=== PATIENT | female | born 1955 | race Caucasian/White ===

== ENCOUNTER 2021-05-18 15:46 | Outpatient (REF) | payer SELFPAY ==
--- NOTE | 2021-05-18 15:00 | PAPFT_PTH ---
PATIENT: Jennifer Vásquez LOC: [facility]#:[id number] AGE/SX: 65/F ROOM: RE05/18/[address]: Elena Pham : 1955 BED: DIS: 05/18/2021 SPEC #: [id number] RECD: 05/19/21 12:57 STATUS: OUMOU REArlene #: [id number] PARVIZ: 05/18/21 15:[address]: Elena Pham [facility] Cytology RECD BY: Alicia Daniel Tissues: 1 - CX/ENDOCX FOR PAP SMEARS Procedures: PAP THIN PREP/UVM Screening HPV DNA PROBE Comments: [id number]
[2021-05-18 20:45] LABS: Cholesterol 311 mg/dL (<200); Glucose 95 mg/dL (74-106); HDL Cholesterol 54 mg/dL (40-60); Triglyceride 511 mg/dL (<150)
[2021-05-18 20:57] LABS: LDL CHOLESTEROL 175 mg/dL (<100)
== END 2021-05-18 15:47 | disposition home or self-care (01) ==
LOC: NCHCN 15:46
PROVIDERS: Visit Provider Nurse Practitioner Family
DX: Z00.00 Encounter for general adult medical examination without abnormal findings (principal); Z13.220 Encounter for screening for lipoid disorders; Z13.1 Encounter for screening for diabetes mellitus; Z12.4 Encounter for screening for malignant neoplasm of cervix; Z11.51 Encounter for screening for human papillomavirus (HPV)
CPT/HCPCS: 80053; 80061; 82947; 83721; 88142; 83036; 85025; 87624

== ENCOUNTER 2021-11-03 14:52 | Outpatient (REF) | payer MEDICARE, SELFPAY ==
[2021-11-03 18:09] LABS: Calculated LDL 183 mg/dL (<100); Cholesterol 286 mg/dL (<200); HDL Cholesterol 67 mg/dL (40-60); Triglyceride 183 mg/dL (<150)
== END 2021-11-03 14:53 | disposition home or self-care (01) ==
LOC: NCHCN 14:52
PROVIDERS: Visit Provider Nurse Practitioner Family
DX: E78.1 Pure hyperglyceridemia (principal)
CPT/HCPCS: 80061

== ENCOUNTER 2022-07-04 01:23 | Outpatient (CLI) | payer MEDICARE, SELFPAY ==
--- NOTE | 2022-07-04 11:15 | DI.US_ITS ---
Exam(s) US PELVIS TRANSVAGINAL EXAM: US PELVIS TRANSVAGINAL CLINICAL HISTORY: POSTMENOPAUSAL VAGINAL BLEEDING, N95.0, INTERMITTENT. TECHNIQUE: Transabdominal and transvaginal pelvic ultrasound was performed using standard protocol. COMPARISON: No exams were available for comparison FINDINGS: KIDNEYS: Limited renal evaluation is unremarkable. UTERUS: Position: Anteverted. Size: 5.5 long by 3.8 AP by 4.3 transverse cm Endometrium: Up to 2.8 cm. There is a hyperechoic solid focal thickening in the fundus of the endomet rial canal. Based on the images it appears to be a mass. It measures 2.8 x 1.7 x 2.5 cm. No blood flow is identified internally. Myometrium: Unremarkable. Cervix: Unremarkable. OVARIES: The ovaries were not visualized transabdominally or transvaginally. No adnexal masses are p resent. CUL-DE-SAC: Free fluid: None. Other: None. IMPRESSION: 1. Limited evaluation of the kidneys is unremarkable. 2. Focal thickening in the fundal endometrium measuring 2.8 x 1.7 x 2.7 cm. The findings are suspici ous for endometrial mass, such as a neoplasm or polyp. Endometrial evaluation/biopsy is recommended. Gynecologic consult is recommended. 3. The ovaries were not visualized transabdominally or transvaginally. No adnexal masses are seen so nographically. DATA REPOSITORY:
== END 2022-07-04 01:43 ==
PROVIDERS: Visit Provider Nurse Practitioner Family
DX: N95.0 Postmenopausal bleeding (principal)
CPT/HCPCS: 76830; 76856

== ENCOUNTER 2022-08-15 03:20 | Outpatient (CLI) | payer MEDICARE, SELFPAY ==
[2022-08-15 11:18] LABS: Abs Immature Grans 0.03 10^3/uL (0.0-0.06); Absolute Basophil Count 0.05 10^3/uL (0.0-0.2); Absolute Lymphocyte Count 1.67 10^3/uL (1.2-3.4); Absolute Monocyte Count 0.52 10^3/uL (0.1-0.8); Absolute Neutrophil Count 4.52 10^3/uL (1.2-6.7); Basophils % 0.7; Eosinophils % 1.5; HCT 39.9 % (36.0-46.0); HGB 12.9 g/dL (11.2-15.7); Immature Grans % 0.4; Lymphocytes % 24.2; MCH 28.4 pg (27.0-33.0); MCHC 32.3 % (32.0-36.0); MCV 88 fL (80-95); Monocytes % 7.5; Neutrophils % 65.7; Platelet Count 321 10^3/uL (130-400); RBC 4.55 10^6/uL (3.93-5.22); RDW 13.3 % (11.7-14.6); WBC 6.89 10^3/uL (4.4-10.8)
== END 2022-08-15 03:21 | disposition home or self-care (01) ==
LOC: LBO 03:20
PROVIDERS: Visit Provider Obstetrics & Gynecology
DX: N95.0 Postmenopausal bleeding (principal); R93.89 Abnormal findings on diagnostic imaging of other specified body structures; Z01.818 Encounter for other preprocedural examination; Z01.812 Encounter for preprocedural laboratory examination
CPT/HCPCS: 36415; 86850; 86900; 86901; 85025

== ENCOUNTER 2022-08-17 06:15 | Day surgery (SDC) | payer MEDICARE, SELFPAY ==
[2022-08-17] VITALS (7 sets, daily range): BP systolic 85–115; BP diastolic 46–76; PULSE 65–78; RESP 12–18; TEMP 36.2–36.4; O2SAT 96–100; BMI 26.6
--- NOTE | 2022-08-17 07:01 | W.ANESPRE ---
General Info Date of Service Date Performed: 08/17/22 Height: 5 ft 7 in Weight: 77 kg Body Mass Index (BMI): 26.6 Surgical Procedure: Operation Date: 08/17/22 07:40 Proposed Procedure Side Surgeon p Dilation & Curettage with Hysteroscopy, Possible Myosure Jackie Polk DO Meds Allergies and Home Medications Allergies Allergy/AdvReac Type Severity Reaction Status Date / Time No Known Allergies Allergy Verified 08/17/22 06:43 Home Medication Medication Instructions Recorded multivitamin 1 tab PO DAILY 08/17/22 Current Visit Medications: Current Medications Generic Name Dose Route Start Last Admin Trade Name Freq PRN Reason Stop Dose Admin Ringer's Solution 1,000 mls @ 125 mls/hr 08/17/22 06:00 IV 09/15/22 23:59 INFUSION JEROMY IV Miscellaneous Supplies 1 each 08/17/22 06:00 Iv Access IV 09/15/22 23:59 DIRECTED JEROMY Sodium Chloride 0 ml 08/17/22 06:00 Normal Saline Flush 10 Ml Syr IV 09/15/22 23:59 PRN PRN Sodium Chloride 0 ml 08/17/22 06:00 Normal Saline 10 Ml Vial IJ 09/15/22 23:59 DIRECTED PRN Sterile Water 0 ml 08/17/22 06:00 Water,Injection,Sterile 10 Ml Vial IJ 09/15/22 23:59 DIRECTED PRN PFSH Active Problems Active Problems: Problem Status Onset Code Postmenopausal bleeding N95.0 Thickened endometrium R93.89 Medical History Medical History Comments:: pt states last surgery had hard time coming out of anesthesia and was admitted for delayed emergence and PONV Surgical History Surgical History H/O bilateral breast implants H/O cone biopsy of cervix H/O lumpectomy Tobacco Smoking/Tobacco Use Status: Never Alcohol Alcohol Intake: current Alcohol intake frequency: holidays/special occasions only Substance Use Substance use: Never Prental History History 4 Para 4 Hx # Term Pregnancies 4 Multiple births Hx # Pregnancies Ectopic pregnancies AB induced Hx Number of Living Children 4 AB spontaneous Vital Signs and Lab Results Vital Signs Most Recent Vital Signs in EMR: Most Recent Vital Signs Temp Pulse Resp BP Pulse Ox 36.4 C L 72 18 112/76 99 08/17/22 06:28 08/17/22 06:28 08/17/22 06:28 08/17/22 06:28 08/17/22 06:28 Lab Results Blood Type / Crossmatch: Patient ABO/Rh B Positive 08/15/22 Antibody Screen NEGATIVE 08/15/22 Complete Blood Count: White Blood Count 6.89 10^3/uL (4.4-10.8) 08/15/22 11:05 Red Blood Count 4.55 10^6/uL (3.93-5.22) 08/15/22 11:05 Hemoglobin 12.9 g/dL (11.2-15.7) 08/15/22 11:05 Hematocrit 39.9 % (36.0-46.0) 08/15/22 11:05 Platelet Count 321 10^3/uL (130-400) 08/15/22 11:05 Complete Metabolic Panel: No Data to Display Liver Function Panel: No Data to Display Coagulation Panel: No Data to Display Cardiac Panel: No Data to Display Arterial Blood Gas: No Data to Display Venous Blood Gas: No Data to Display Pancreas Panel: No Data to Display Thyroid Panel: No Data to Display Infectious Disease: No Data to Display Blood Cultures: No Data to Display Toxicology Panel: No Data to Display Anesthesia Assessment and Plan Anesthesia History Personal History: PONV and Delayed Emergence Family History: No Family History of Anesthesia Complications Exercise Tolerance Exercise Tolerance: Metabolic Equivalents>4 Pertinent Negatives Pertinent Negatives: No Symptoms of GERD, No Major Cardiovascular Symptoms or Complaints and No Major Pulmonary Symptoms or Complaints Cardiac & Pulmonary Exam Cardiac Exam: Normal S1/S2 Heart Sounds Pulmonary Exam: Clear Bilateral Breath Sounds Implantable Cardiac Device Does patient have a Pacemaker or an ICD?: No Airway Exam Known Difficult Airway: No Mallampati Class: 2 Mouth Opening: Normal (> 3cm) Thyromental Distance: Greater than 3 cm Neck Range of Motion: Full ROM Neck Circumference: Normal Teeth Condition: Normal Dentition ASA Classification ASA Score: ASA 2 Emergency Case?: No NPO Status NPO Status: NPO Clears >2 hours, Solids >8 hours Anesthesia Plan Resuscitation Status: Full Code Anesthesia Technique: General Anesthesia Airway Planned: Natural Airway Monitors Used: Standard Monitors and SedLine
[2022-08-17] MEDS: Lactated Ringers 1,000 ML 125 ML IV (07:05)
--- NOTE | 2022-08-17 07:34 | HPE_ITS ---
Date of service: 08/17/22 Time of Service: 07:34 Assessment and Plan Assessment and plan (1) Postmenopausal bleeding: Status: Acute Assessment and plan: Patient is a postmenopausal female with postmenopausal (2) Thickened endometrium: Status: Acute History of Present Illness History of Present Illness Chief Complaint: Markedly thickened endometrial lining at 2.8 cm with postmenopausal bleedin Narrative: Patient is a 66-year-old female with postmenopausal bleeding and a markedly thickened endometrium at 2.8 cm. In light of this thickness, my recommendation would be for hysteroscopy with dilation and curettage, possible MyoSure for removal of polyp and pathologic specimen to the lab for diagnosis. All of her questions were answered today. Review of Systems Narrative: Feeling well. No issues or concerns Eyes Eyes: Reports system reviewed and no additional complaints, except as documented ENT Ears, Nose, Mouth, and Throat: Reports system reviewed and no additional complaints, except as documented Cardiovascular Cardiovascular: Reports system reviewed and no additional complaints, except as documented Respiratory Respiratory: Reports system reviewed and no additional complaints, except as documented Gastrointestinal Gastrointestinal: Reports system reviewed and no additional complaints, except as documented Genitourinary Genitourinary: Reports system reviewed and no additional complaints, except as documented and Reports as per HPI Musculoskeletal Musculoskeletal: Reports system reviewed and no additional complaints, except as documented Integumentary/Breasts Skin/Breast: Reports system reviewed and no additional complaints, except as documented PFSH All Active Problems Postmenopausal bleeding (Acute) Thickened endometrium (Acute) Surgical History H/O bilateral breast implants H/O cone biopsy of cervix H/O lumpectomy Family History Mother Breast cancer Social History Smoking/Tobacco Use Status: Never Smoking risk assessment performed?: Yes Alcohol Intake: current Alcohol Intake frequency: holidays/special occasions only Drug use: Never Do you feel safe at home: Yes Do you feel safe in your relationship?: Yes Female Reproductive History Menstrual Age of Menarche: 13 Menopause type: natural History History 4 Para 4 Hx # Term Pregnancies 4 Multiple births Hx # Pregnancies Ectopic pregnancies AB induced Hx Number of Living Children 4 AB spontaneous Meds Allergies and Home Medications Allergies Allergy/AdvReac Type Severity Reaction Status Date / Time No Known Allergies Allergy Verified 08/17/22 06:43 Home Medications Medication Instructions Recorded Confirmed Type multivitamin 1 tab PO DAILY 08/17/22 08/17/22 History Exam Const General: cooperative, healthy appearing, comfortable and no acute distress Nutritional Appearance: average body habitus HENPR Head: normal to inspection Eyes General: appearance normal, both eyes and all related structures Neck Neck: normal visual inspection, full ROM and supple Resp Effort & Inspection: normal respiratory effort, no audible wheezes and no cough Auscultation: clear to auscultation bilaterally, no rales, no rhonchi and no wheezes Cardio Palpation: normal PMI Rate: regular rate Rhythm: regular rhythm Heart Sounds: S1 normal, S2 normal and no murmurs Psych Appearance: grossly normal Mental Status: mental status grossly normal Results Imaging Additional studies: Markedly thickened endometrium at 2.8 cm Last Vital Signs Temp 97.5 F L 08/17/22 06:28 Pulse 72 08/17/22 06:28 Resp 18 08/17/22 06:28 BP 112/76 08/17/22 06:28 Pulse Ox 99 08/17/22 06:28 Time Spent Time spent with Patient: <40 minutes Time was spent: preparing to see the patient(eg.review tests), obtaining and/or reviewing separately otained hiistory, ordering medications,tests, procedures, referring, communicating with other health home health care case manager, indepentently interpreting results and counseling the patient
--- NOTE | 2022-08-17 08:15 | ENDO_PTH ---
PATIENT: Jennifer Vásquez LOC: [facility] U#:[id number] AGE/SX: 66/F ROOM: RE08/17/[address]: Jackie Polk DO : 1955 BED: DIS: 08/17/2022 SPEC #: [id number] RECD: 08/17/22 11:01 STATUS: OUMOU REQ #: [id number] PARVIZ: 08/17/22 08:[address]: Jackie Polk DEPT: Surgical Specimen RECD BY: Alicia Daniel ENTERED: 08/17/22 11:03 SP TYPE: Endo OTHR DR: Unknown,Unknown Tissues: 1 - ENDOCERVICAL BX/CURRETTE 2 - ENDOMETRIUM BX/CURRETTE Procedures: GROSS AND MICRO LEVEL 4 Comments: [id number]
--- NOTE | 2022-08-17 08:36 | ROE_ITS ---
Date of service: 08/17/22 Time of Service: 08:36 Operative Note Operative Note DATE OF PROCEDURE: 08/17/22 PRE-OP DIAGNOSIS: Postmenopausal bleeding, thickened endometrium POST-OP DIAGNOSIS: same PROCEDURE: Hysteroscopy with dilation and curettage SURGEON: Jackie Polk ANESTHESIA TYPE: General LMA/ETT Refer to Anesthesia Record ESTIMATED BLOOD LOSS: 5 PATHOLOGY: other (1. Endocervical curetting 2. Endometrial curetting) COMPLICATIONS: None Patient was transported to: PACU Patient's condition: stable Implants: None Indications: Postmenopausal bleeding and thickened endometrium Findings: [place] posterior wall of the endometrial cavity. Anterior portion of the cavity smooth and regular. Tubal ostia visualized. No polyp or fibroid noted. Procedure Description: After full informed consent was obtained, patient was taken the operating suite with an IV running. She was placed in the supine position and anesthesia administered via LMA. She was then placed in the modified dorsolithotomy pos ition and prepped and draped in the usual sterile fashion. Her bladder was drained for approximately 100 cc of clear yellow urine. Exam under anesthesia revealed a uterus that was midline and mobile and not significantly enlarged. There is no evidence of pelvic mass. At this point speculum was inserted into the vaginal vault and the cervical os identified. A single-tooth tenaculum was used to grasp the anterior lip of the cervix. Cervical os was dilated in a sequential fashion to the point that a 6 mm hysteroscope could be passed without difficulty. With fluid management system and instillation of normal saline the endometrial cavity was visualized. There was no evidence of polyp, or fibroid. The posterior aspect of the endometrial cavity looked plush and somewhat irregular. At this point the hysteroscopic portion of the examination was discontinued with a fluid deficit of 50 mL of normal saline. Curettage of the lower portion of the cervix was performed for scant tissue and a subsequent curettage of the endometrial cavity performed for moderate tissue. These were sent separately for pathologic examination. Single-tooth tenaculum was then removed and puncture site was noted to be hemostatic. Speculum was removed and the patient was returned to the dorsal supine position. She was taken to the postanesthesia care unit in stable condition. Complications: None apparent EBL: 5 mL Pathology: 1. Endocervical curetting 2. Endometrial curetting Fluid: Crystalloid per anesthesia.
--- NOTE | 2022-08-17 09:38 | W.ANESPOSTOP ---
Postoperative Evaluation Date, Time and Location Date Performed: 08/17/22 Time Performed: 09:14 Patient Location: Day Surgery Unit Vital Signs Most Recent Imported Vital Signs: Most Recent Vital Signs Temp Pulse Resp BP Pulse Ox 36.2 C L 65 16 115/71 99 08/17/22 09:30 08/17/22 09:30 08/17/22 09:30 08/17/22 09:30 08/17/22 09:30 Pain Score Most Recent Pain Score: Most Recent Pain Score Pain Level 0 08/17/22 09:30 Assessment Mental Status: Awake (Alert & Oriented to Patient Baseline) Airway and Respiratory Function: Patent airway with normal (patient baseline) respiratory exam Cardiovascular Function: Hemodynamically Stable Hydration Status: Adequately Hydrated Nausea & Vomiting: No Nausea or Vomiting Pain: Pt. Denies Any Pain Peripheral Nerve Block: Patient did not receive a nerve block
== END 2022-08-17 10:42 | disposition home or self-care (01) ==
PROVIDERS: Visit Provider Obstetrics & Gynecology
PROC: 0UDB8ZZ Extraction of Endometrium, Via Natural or Artificial Opening Endoscopic (ICD-10-PCS; CPT 58558; principal; 2022-08-17 07:30)
DX: N95.0 Postmenopausal bleeding (principal); R93.89 Abnormal findings on diagnostic imaging of other specified body structures; C54.1 Malignant neoplasm of endometrium
CPT/HCPCS: 58558; 88305; J1100; J1885; J2405; J2704

== ENCOUNTER 2023-08-06 14:58 | Outpatient (REF) | payer MEDICARE, SELFPAY ==
[2023-08-06 14:57] LABS: Hemoglobin A1C 5.7 % (<5.7)
[2023-08-06 15:04] LABS: ALT 27 U/L (14-59); AST 14 U/L (15-37); Albumin 3.8 g/dL (3.4-5.0); Alkaline Phosphatase 66 U/L (46-116); Anion Gap 8.9 mmol/L (3-11); BUN 18 mg/dL (7-18); Bilirubin, Total 0.2 mg/dL (0.2-1.0); CO2 26.1 mmol/L (21.0-32.0); CREATININE 0.8 mg/dL (0.55-1.02); Calcium 9.3 mg/dL (8.5-10.1); Chloride 103 mmol/L (98-107); Estimated GFR 81.21 (mL/min/1.73m2); Glucose 117 mg/dL (74-106); Lipase 29 U/L (16-77); Sodium 138 mmol/L (136-145); Total Protein 7.5 g/dL (6.4-8.2)
== END 2023-08-06 14:59 | disposition home or self-care (01) ==
LOC: NCHCN 14:58
PROVIDERS: Visit Provider Nurse Practitioner Family
DX: R73.03 Prediabetes (principal); R94.5 Abnormal results of liver function studies; K59.00 Constipation, unspecified
CPT/HCPCS: 80053; 83690; 83036

== ENCOUNTER → 2023-08-13 03:06 | Outpatient (CLI) | payer MEDICARE, SELFPAY ==
--- NOTE | 2023-08-13 11:10 | DI.RAD_ITS ---
Exam(s) XR CHEST 2V PA LATERAL EXAM: XR CHEST 2V PA LATERAL CLINICAL HISTORY: CHEST PAIN R07.89 TIGHT CHEST TECHNIQUE: 2D digital imaging was performed. COMPARISON: No exams were available for comparison FINDINGS: HEART: Normal size. Aorta: Not dilated. PULMONARY VASCULATURE: Normal. LUNGS: Clear. PLEURAL SPACE: No pleural effusion or pneumothorax. BONE:Unremarkable for age. Soft tissues: Unremarkable. IMPRESSION: No acute abnormality. DATA REPOSITORY: RADIATION DOSE DELIVERED:
== END ==
PROVIDERS: Visit Provider Nurse Practitioner Family
DX: R07.89 Other chest pain (principal)
CPT/HCPCS: 71046

== ENCOUNTER 2024-03-31 18:42 | Outpatient (REF) | payer MEDICARE, SELFPAY ==
--- OUTSIDE RECORDS SUMMARY | 2024-03-31 18:43 | XMS_ITS | Referral Summary ---
Author Organization [facility] Address [address] [place] [address] Care Team Providers Care Push Button Switch Assembler Name Role Phone Unknown, Provider Primary Care Provider [phone] Social History Tobacco Use Types Packs/Day Years Used Date Smoking Tobacco: Never Assessed Sex and Gender Information Value Date Recorded Sex Assigned at Not on file Gender Identity Not on file Sexual Orientation Not on file Plan of Treatment Not on file Care Teams Push Button Switch Assembler Relationship Specialty Start Date End Date Unknown, Provider, PCP - General 07/23/22
--- OUTSIDE RECORDS SUMMARY | 2024-03-31 18:43 | XMS_ITS | Clinical Summary ---
Author Organization [facility] Address [address] [place] [address] Care Team Providers Care Electric Crane Operator Name Role Phone Unknown, Provider Primary Care Provider [phone] Social History Tobacco Use Types Packs/Day Years Used Date Smoking Tobacco: Never Assessed Sex and Gender Information Value Date Recorded Sex Assigned at Not on file Gender Identity Not on file Sexual Orientation Not on file Plan of Treatment Health Maintenance Due Date Last Done Comments Hepatitis C Screen 1955 RSV Immunization ( o r 60+ Years) (1 - 1-dose 60+ series) 2016 Fall Risk Screening 2021 COVID-19 Vaccine ( season) 2023 Care Teams Electric Crane Operator Relationship Specialty Start Date End Date Unknown, Provider, PCP - General 07/23/22
--- OUTSIDE RECORDS SUMMARY | 2024-03-31 18:44 | XMS_ITS | Encounter Summary ---
Author Organization [facility] Address [address] [place] [address] Care Team Providers Care Interactive Media Marketing Director Name Role Phone Unknown, Provider Primary Care Provider [phone] Encounter Details Date Type Department Care Team (Late st Contact Info) Description 05/20/2021 Lab Requisition [facility] Pathology & Laboratory Medicine - [facility] [address] [place] [address] Elena Pham, [address] [id number] Encounter for screening for malignant neoplasm of cervix Social History Tobacco Use Types Packs/Day Years Used Date Smoking Tobacco: Never Assessed Sex and Gender Information Value Date Recorded Sex Assigned at Not on file Gender Identity Not on file Sexual Orientation Not on file documented as of this encounter Plan of Treatment Not on file documented as of this encounter Procedures Procedure Name Priority Date/Time Associated Diagnosis Comments PAP TEST Today 05/18/2021 15:00 EDT Encounter for screening for malignant neoplasm of cervix HPV DNA DETECTION WITH GENOTYPING, PCR Today 05/18/2021 15:00 EDT Encounter for screening for malignant neoplasm of cervix documented in this encounter Results * HUMAN PAPILLOMAVIRUS (HPV) DETECTION-HIGH RISK TYPES (05/18/2021 15:00 EDT) HPV other High Risk types, PCR Negative Negative 05/27/2021 8:30 EDT [facility] Comment:No E6 or E7 mRNA is detected from HPV types 16,18,31,33,35,39,45,51,52,56,58,59,66, and 68 by studio assistant mediated amplification. Papanicolaou smear specimen (specimen) CERVIX UTERI STRUCTURE / Unknown 05/18/2021 15:00 EDT 05/25/2021 13:29 EDT Elena Pham SERVER CASHIER MICROBIOLOGY - GENER AL ORDERABLES [facility] [address] [place] [id number] * PAP TEST (05/18/2021 15:00 EDT) Specimens A. Cervix and/or Endocervix , ThinPrep Imaging System with Manual Evaluation 05/27/2021 8:30 T [facility] Specimen Adequacy Satisfactory for Evaluation - assessment of transformation zone component not applicable ( e.g. atrophy, vaginal sample, hysterectomy) 05/27/2021 8:30 EDT [facility] General Categorization Negative for intraepithelial lesion or malignancy 05/27/2021 8:30 T [facility] Attestation . 05/27/2021 8:30 [facility] at 0830 Clinical History See below 05/27/20 8:30 T [facility] HPV The result for the Human Papillomavirus (HPV) Detection-High Risk Types is Negative. No E6 or E7 mRNA is detected from HPV types 16,18,31,33,35,39 ,45,51,52,56,58,5 9,66, and 68 by studio assistant mediated amplification.Lisa ting was performed on specimen [id number] and was resulted on 05/27/2021 0815 EDT by PHIL, LAB INSTRUMENT RESULTS IN 05/27/2021 8:30 EDT [facility] Performing Lab [facility] 05/27/2021 8:30 EDT [facility] Scanned Images 05/27/2021 8:30 T [facility] Papanicolaou smear specimen (specimen) CERVIX UTERI STRUCTURE / Unknown 05/18/2021 15:00 EDT 05/20/2021 12:26 EDT Elena Beckett Albertkaity SERVER CASHIER PATHOLOGY ORDERABLES [facility] [address] [place] [address] documented in this encounter Visit Diagnoses Diagnosis Encounter for screening for malignant neoplasm of cervix Screening for malignant neoplasm of the cervix documented in this encounter Care Teams Interactive Media Marketing Director Relationship Specialty Start Date End Date Unknown, Provider, PCP - General 07/23/22 documented as of this encounter
--- OUTSIDE RECORDS SUMMARY | 2024-03-31 18:44 | XMS_ITS | Encounter Summary ---
Author Organization [facility] Address [address] [place] [address] Care Team Providers Care Speech Language Pathology Assistant Name Role Phone Unknown, Provider Primary Care Provider [phone] Encounter Details Date Type Department Care Team (Late st Contact Info) Description 08/17/2022 Lab Requisition [facility] Pathology & Laboratory Medicine - [facility] [address] [place] [address] Jackie Polk [address] [place] [address] [place] [address] Postmenopausal bleeding; Abnormal findings on diagnostic imaging of other specified body structures; Other specified postprocedural states Social History Tobacco Use Types Packs/Day Years Used Date Smoking Tobacco: Never Assessed Sex and Gender Information Value Date Recorded Sex Assigned at Not on file Gender Identity Not on file Sexual Orientation Not on file documented as of this encounter Plan of Treatment Not on file documented as of this encounter Procedures Procedure Name Priority Date/Time Associated Diagnosis Comments SURGICAL PATHOLOGY Today 08/17/2022 8: 15 EST Postmenopausal bleeding Abnormal findings on diagnostic imaging of other specified body structures Other specified postprocedural states documented in this encounter Results * SURGICAL PATHOLOGY (08/17/2022 8:15 EST) Note to Patient The following pathology results have been interpreted by your pathologist and may be available to you before your health provider has had the opportunity to review them. Please allow time for your provider to receive these results and explore management options, if applicable. 08/23/2022 9:41 EST [facility] Final Diagnosis A. ENDOCERVIX, CURETTAGE: - Minute detached fragment of endometrial adenocarcinoma. - Scant fragments of squamous and lower uterine segment/endocervical tissue. B. ENDOMETRIUM, CURETTAGE: - Endometrial adenocarcinoma, endometrioid type, FIGO grade 1. See comment. 08/23/2022 9:41 [facility] Diagnosis Comment Cable Puller slides of this case were reviewed at the intradepartmental consultation conference. Immunohistochemical staining for mismatch repair (MMR) proteins for Shubuta Martines Screening has been performed on block B1. The results are listed under Ancillary Studies. ANTIBODY (CLONE) (BLOCK): RESULT P16 (E6H4TM, [place]) (B2): Mosaic expression CEA Monoclonal (CEA31, [place]) (B2): Negative in cells of interest Vimentin (V9, [place]) (B2): Diffusely positive Progesterone Receptor (16, [place]) (B2): Diffusely positive. NOTE: One or more of the reagents used in immunoperoxidase testing in this case may not have been cleared or approved by the U.S. Food and Drug Administration (FDA). The FDA has determined that such clearance or approval is not necessary. These tests are used for clinical purposes. They should not be regarded as investigational or for research. These reagents' performance characteristics have been determined by [facility] and/or by the referring laboratory. The positive and negative controls worked appropriately. If immunoperoxidase staining has been performed on alcohol fixed cytology specimens, which has not been fully validated, the assays should be interpreted with caution and correlated with clinical data. This laboratory is certified under the Clinical Laboratory Improvement Amendments of 1988 (CLIA-88) as qualified to perform high complexity clinical laboratory testing.? 08/23/2022 9:41 [facility] Attestation There was significan t resident/fellow involvement in the diagnostic evaluation of this case. By the signature below, the attending physician certifies that they have personally conducted a gross and/or microscopic examination of the described specimens and rendered or confirmed the above diagnosis. 08/23/2022 9:41 [facility] at 0941 Ancillary Studies RESULTS OF IMMUNOHISTOCHEMICAL STAINING: Retained expression of MLH1, PMS2, MSH2 and MSH6 TISSUE SUBMITTED: Formalin fixed paraffin embedded tissue block labelled ([id number]), block (B1) TUMOR TYPE: Endometrial adenocarcinoma, endometrioid-type, FIGO grade 1. INTERPRETATION: These results are indicative of normal DNA mismatch repair function within the tumor. This patient most likely does not have Martines syndrome. However, it is important to note that 3-10% of Martines syndrome patients may reveal retained expression of mismatch repair proteins due to mutation in other genes. Hence these findings should be interpreted in the context of family and clinical history. If results do not match clinicopathologic findings, molecular testing (specifically microsatellite instability by PCR) can be ordered upon obtaining preauthorization or an advanced beneficiary notice. ANTIBODY (CLONE) (BLOCK): RESULT MLH1 (M1, [place]) (block B1): Retained expression in tumor PMS2 (A16-4, [place]) (block B1): Retained expression in tumor MSH2 ([id number], [place]) (block B1): Retained expression in tumor MSH6 (SP93, [place]) (block B1): Retained expression in tumor Internal controls: Adequate NOTE: One or more of the reagents used in immunohistochemical testing in this case may not have been cleared or approved by the U.S. Food and Drug Administration (FDA). The FDA has determined that such clearance or approval is not necessary. These tests are used for clinical purposes. They should not be regarded as investigational or for research. These reagents' performance characteristics have been determined by [facility] and/or by the referring laboratory. The positive and negative controls worked appropriately. This laboratory is certified under the Clinical Laboratory Improvement Amendments of 1988 (CLIA-88) as qualified to perform high complexity clinical laboratory testing. 08/23/2022 9:41 [facility] Clinical History Postmenopausal bleeding; thickened endometrium 08/23/2022 9:41 [facility] Gross Description A. Received in formalin labelled with proper patient identification (initials H, C) and endocervical curettings is an aggregate of arora fragments of soft tissue with the presence of minute amounts of blood clot that measures 0.4 x 0.1 x 0.1 cm . The specimen is submitted entirely in A1. B. Received in formalin labelled with proper patient identification (initials H, C) and endometrial curettings is an aggregate of yellow-arora fragments of soft tissue that measures 2.5 x 1.7 x 0.8 cm. Also received in the same container is an aggregate of blood clot that measures 1.3 x 1.0 x 0.4 cm. The ratio between tissue to blood clot is roughly 60% tissue : 40% blood clot The specimen is submitted entirely as follows: BLOCK DOMINGUEZ B1-B2- aggregate of fragments of soft tissue B3- aggregate of blood clot Miguelina Camilo 08/18/2022 5:51 08/23/2022 9:41 EST [facility] Resident/Fell ow: Sheldon Camilo MD 08/23/2022 9:41 EST [facility] Performing Lab [facility] 08/23/2022 9:41 EST [facility] Scanned Images 08/23/2022 9:41 EST [facility] Tissue ENTIRE ENDOMETRIUM / Unknown 08/17/2022 8:15 EST 08/17/2022 21:18 EST Tissue specimen (specimen) ENDOMETRIAL STRUCTURE / Unknown 08/17/2022 8:15 EST 08/17/2022 21:18 EST Jackie Polk PATHOLOGY ORDERABLES Performing Organization Address City/State/[facility] Co de Phone Number [facility] [address] [place] [address] documented in this encounter Visit Diagnoses Diagnosis Postmenopausal bleeding Abnormal findings on diagnostic imaging of other specified body structures Other specified postprocedural states documented in this encounter Care Teams Speech Language Pathology Assistant Relationship Specialty Start Date End Date Unknown, Provider, PCP - General 07/23/22 documented as of this encounter
[2024-03-31 21:45] LABS: HCT 39.5 % (36.0-46.0); HGB 12.9 g/dL (11.2-15.7); MCH 28.8 pg (27.0-33.0); MCHC 32.7 % (32.0-36.0); MCV 88 fL (80-95); MPV 9.7 fL (8.0-11.0); Platelet Count 296 10^3/uL (130-400); RBC 4.48 10^6/uL (3.93-5.22); RDW 13.4 % (11.7-14.6); RDW-SD 43.8 fL; WBC 5.46 10^3/uL (4.4-10.8)
[2024-03-31 22:02] LABS: ALT 30 U/L (14-59); AST 22 U/L (15-37); Albumin 3.8 g/dL (3.4-5.0); Alkaline Phosphatase 68 U/L (46-116); Anion Gap 6.5 mmol/L (3-11); BUN 15 mg/dL (7-18); Bilirubin, Total 0.26 mg/dL (0.2-1.0); CO2 27.5 mmol/L (21.0-32.0); CREATININE 0.8 mg/dL (0.55-1.02); Calcium 9.2 mg/dL (8.5-10.1); Calculated LDL 157 mg/dL (<100); Chloride 104 mmol/L (98-107); Cholesterol 275 mg/dL (<200); Estimated GFR 80.71 (mL/min/1.73m2); Glucose 96 mg/dL (74-106); HDL Cholesterol 71 mg/dL (40-60); Potassium 3.8 mmol/L (3.5-5.1); Sodium 138 mmol/L (136-145); Total Protein 7.1 g/dL (6.4-8.2); Triglyceride 235 mg/dL (<150)
== END 2024-03-31 18:43 | disposition home or self-care (01) ==
LOC: NCHCN 18:42
PROVIDERS: Visit Provider Nurse Practitioner Family
DX: E78.5 Hyperlipidemia, unspecified (principal); R73.03 Prediabetes; I73.9 Peripheral vascular disease, unspecified
CPT/HCPCS: 80053; 80061; 85027; 83036

== ENCOUNTER 2024-11-18 10:20 | Outpatient (CLI) | payer MEDICARE, SELFPAY ==
[2024-11-18 11:20] LABS: CREATININE 0.8 mg/dL (0.55-1.02); Estimated GFR 80.21 (mL/min/1.73m2)
== END 2024-11-18 10:21 | disposition home or self-care (01) ==
LOC: LBO 10:25
PROVIDERS: Visit Provider Radiology Radiation Oncology
DX: C54.1 Malignant neoplasm of endometrium (principal)
CPT/HCPCS: 36415; 82565

== ENCOUNTER 2025-05-04 15:00 | Outpatient (REF) | payer MEDICARE, SELFPAY ==
[2025-05-04 16:25] LABS: D-Dimer 660 ng/mlFEU (<500)
== END 2025-05-04 15:01 | disposition home or self-care (01) ==
LOC: NCHCN 15:00
PROVIDERS: Visit Provider Nurse Practitioner Family
DX: M25.561 Pain in right knee (principal)
CPT/HCPCS: 85379

== ENCOUNTER 2025-05-05 11:18 | Outpatient (CLI) | payer MEDICARE, SELFPAY ==
--- NOTE | 2025-05-05 | DI.US_ITS ---
Exam(s) US LOWER EXTREMITY VENOUS RT EXAM: US LOWER EXTREMITY VENOUS RT CLINICAL HISTORY: M79.604 Pain RT leg, HX CA presents w/RT knee pain,swelling;2 recent falls. TECHNIQUE: Lower extremity venous ultrasound performed using grayscale, color- flow, and spectral Doppler analysis. COMPARISON: No exams were available for comparison FINDINGS: The common femoral, femoral and popliteal veins demonstrate normal compressibility, augmentation, and color Doppler. The posterior tibial and peroneal veins are patent. No saphenous vein thrombosis or other superficial venous thrombosis is seen. No hematoma or Villarreal's cyst is seen. IMPRESSION: Negative lower extremity ultrasound. No evidence of DVT. DATA REPOSITORY:
== END 2025-05-05 11:38 ==
LOC: DI 11:19
PROVIDERS: Visit Provider Nurse Practitioner Family
DX: M79.604 Pain in right leg (principal)
CPT/HCPCS: 93971

== ENCOUNTER 2025-06-11 15:02 | Outpatient (CLI) | payer MEDICARE, SELFPAY ==
--- NOTE | 2025-06-11 13:30 | DI.RAD_ITS ---
Exam(s) XR KNEE RT 4V AP,LAT,JESSA,PAT EXAM: XR KNEE RT 4V AP,LAT,JESSA,PAT CLINICAL HISTORY: RIGHT KNEE PAIN. TECHNIQUE: 2D digital imaging was performed. Three views. COMPARISON: No exams were available for comparison FINDINGS: BONES: No acute fracture is present. No bony destructive lesion is seen. JOINTS: The knee is normally aligned. Joint spaces are maintained. There is spurring from the medial femoral condyle. There is minimal spurring at the articular aspect of the patella. No joint effusion is seen. SOFT TISSUE: Normal. IMPRESSION: Mild degenerative changes. DATA REPOSITORY: RADIATION DOSE DELIVERED:
== END 2025-06-11 15:03 | disposition home or self-care (01) ==
LOC: DIORS 15:04
PROVIDERS: Visit Provider Student in an Organized Health Care Education/Training Program
DX: M17.11 Unilateral primary osteoarthritis, right knee (principal); M25.561 Pain in right knee; R29.6 Repeated falls
CPT/HCPCS: 99214; 73564

== ENCOUNTER 2025-06-22 13:33 | Outpatient (REF) | payer MEDICARE, SELFPAY ==
[2025-06-22 22:11] LABS: Hemoglobin A1C 5.7 % (<5.7)
[2025-06-22 22:16] LABS: Vitamin D 25 Total 32 ng/mL (30-100)
[2025-06-22 22:26] LABS: ALT 33 U/L (10-49); AST 30 U/L (<34); Albumin 4.5 g/dL (3.2-5.0); Alkaline Phosphatase 67 U/L (46-116); Anion Gap 8.2 mmol/L (3-11); BUN 18 mg/dL (9-23); Bilirubin, Total 0.20 mg/dL (0.2-1.2); CO2 27.8 mmol/L (20.0-31.0); Calcium 9.2 mg/dL (8.3-10.6); Chloride 106 mmol/L (98-107); Cholesterol 263 mg/dL (<200); Glucose 100 mg/dL (74-106); HDL Cholesterol 64 mg/dL (>40); Potassium 4.0 mmol/L (3.5-5.1); Sodium 142 mmol/L (136-145); Total Protein 7.1 g/dL (5.7-8.2)
== END 2025-06-22 13:34 | disposition home or self-care (01) ==
LOC: NCHCN 13:33
PROVIDERS: Visit Provider Nurse Practitioner Family
DX: R73.03 Prediabetes (principal); Z00.00 Encounter for general adult medical examination without abnormal findings; M85.80 Other specified disorders of bone density and structure, unspecified site; E78.5 Hyperlipidemia, unspecified
CPT/HCPCS: 80053; 80061; 82306; 83036